=== PATIENT | female | born 1935 | race Two or more races ===

== ENCOUNTER 2020-07-26 17:00 | Emergency (ER) | payer OTHER ==
[~2020-07-26] VITALS: Ht 152.4 cm; Wt 54.4 kg
[2020-07-26] MEDS ORDERED: ADULT ASPIRIN81 MG (17:15)
[2020-07-26] MEDS ORDERED: COZAAR100 MG (17:16)
[2020-07-26] MEDS ORDERED: LEVOTHYROXINE125 MCG (17:16)
[2020-07-26] MEDS ORDERED: CHILDREN'S ASPI81 MG (17:16)
[2020-07-26] MEDS ORDERED: ATORVASTATIN CA20 MG (17:16)
[2020-07-26] MEDS ORDERED: [UNRECOGNIZED DRUG - OTHER] (17:17)
[2020-07-26] MEDS ORDERED: INDERAL XL80 MG (17:17)
== END 2020-07-27 03:17 | disposition home or self-care (01) ==
LOC: ER 17:00
DX: I95.89 Other hypotension (principal); R55 Syncope and collapse; N39.0 Urinary tract infection, site not specified; B96.29 Other Escherichia coli [E. coli] as the cause of diseases classified elsewhere; Z03.818 Encounter for observation for suspected exposure to other biological agents ruled out; G30.8 Other Alzheimer's disease; F02.80 Dementia in other diseases classified elsewhere, unspecified severity, without behavioral disturbance, psychotic disturbance, mood disturbance, and anxiety